=== PATIENT | male | born 1935 ===

== ENCOUNTER 2019-10-13 07:45 | Day surgery (SDC) | payer OTHER ==
[~2019-10-13 07:45] MED LIST: COZAAR25 MG PO; JANUVIA25 MG PO; LIPITOR40 MG PO; PLAVIX75 MG PO; SYNTHROID100 MCG PO
== END 2019-10-13 14:30 | disposition home or self-care (01) ==
LOC: CIR.AMB 07:45 → ADM 14:45
DX: M71.342 Other bursal cyst, left hand (principal)